=== PATIENT | male | born 1965 | race Caucasian/White ===

== ENCOUNTER → 2018-03-27 17:14 | Outpatient (CLI) | payer OTHER, SELFPAY ==
[2018-03-27 18:05] LABS: Add Manual Diff / Slide Review NO; Basophils Percent Auto 1.3 % (0-2); Eosinophils Percent Auto 2.3 % (2-4); Hematocrit 43.8 % (41-53); Lymphocytes Percent Auto 38.6 % (25-40); Mean Corpuscular HGB Conc 34.1 % (30-36); Mean Corpuscular Hemoglobin 29.3 PG (26-34); Mean Corpuscular Volume 85.8 fL (80-100); Monocytes Percent Auto 8.9 % (3-14); Neutrophils Absolute Auto 2900 /uL (3000-5900); Neutrophils Percent Auto 48.9 % (50-75); Platelet Count 204 X10^3/uL (150-400); Red Blood Cell Count 5.11 X10^6/uL (4.5-5.9); White Blood Cell Count 5.9 X10^3/uL (4.5-11.0)
[2018-03-27 18:27] LABS: BUN Creatinine Ratio 17.8 (6-22); Blood Urea Nitrogen 16 mg/dL (9-20); Calcium 9.8 mg/dL (8.4-10.2); Carbon Dioxide 27 mmol/L (22-32); Chloride 101 mmol/L (98-107); Estimated Glomerular Filt Rate > 60.0 mL/min (>60); Glucose 92 mg/dL (70-100); HEMOLYSIS < 15 (0-50); Potassium 4.8 mmol/L (3.4-5.1); Sodium 141 mmol/L (137-145)
== END ==
PROVIDERS: Visit Provider Orthopaedic Surgery
DX: Z01.812 Encounter for preprocedural laboratory examination (principal); D64.9 Anemia, unspecified; R73.9 Hyperglycemia, unspecified
CPT/HCPCS: 36415; 80048; 85025; 93005; 93010

== ENCOUNTER 2018-04-09 10:12 | Inpatient (IN) | payer OTHER, SELFPAY ==
[2018-03-26 07:32] VITALS: BMI 36.2
[2018-04-09] VITALS (14 sets, daily range): BP systolic 99–160; BP diastolic 63–96; PULSE 73–95; RESP 10–18; TEMP 36.3–37.6; O2SAT 91–98; BMI 57.7
--- NOTE | 2018-04-09 | DI.RAD.S_ITS ---
PROCEDURE: XR KNEE RT 1TO2V INDICATIONS: POST OPERATIVE RIGHT KNEE TECHNIQUE: 2 view(s) of the knee acquired. COMPARISON: None. FINDINGS: Bones: Patient is status post knee joint arthroplasty. Hardware components are in expected positions. Visualized bony structures are intact. Soft tissues: Overlying postoperative changes are noted. IMPRESSION: Post right total knee arthroplasty with anatomic alignment. Dictated by: Cristhian Kenny M.D. on 04/09/2018 at 15:39 Approved by: Cristhian Kenny M.D. on 04/09/2018 at 15:39
[2018-04-09] MEDS: VANCOMYCIN 1,000 MG/200 ML FROZ.PIGGY 200 MG IV (10:45)
[2018-04-09] MEDS: LACTATED RINGERS 1,000 ML 42 ML IV ×2 (10:45→13:08)
[2018-04-09] MEDS: ACETAMINOPHEN 325 MG TABLET 975 MG PO ×2 (10:47→22:05)
[2018-04-09] MEDS: CELECOXIB 200 MG CAPSULE PO (10:50)
[2018-04-09] MEDS: PREGABALIN 75 MG CAPSULE PO (10:50)
[2018-04-09] MEDS: fentaNYL 100 MCG/2 ML INJ IV (11:42)
--- NOTE | 2018-04-09 12:00 | PM.PREOP ---
Pre-operative Note Interval Note Pre-op Check: Yes History & Physical Reviewed by Physician and Yes Exam Performed Changes: No
--- NOTE | 2018-04-09 12:01 | SUR.PREOP ---
Block start time [1143] . Monitoring initiated and maintained throughout procedure. Oxygen and medications given per anesthesiologist instructions. Patient remained stable throughout procedure, no adverse reactions noted. Block end time 1155[].
[2018-04-09] MEDS: CEFAZOLIN 2 GM/100 ML FROZ.PIGGY IV ×2 (12:17→18:23)
--- NOTE | 2018-04-09 12:28 | PM.OP.1 ---
Operative Date/Time/Diagnoses Date of procedure: 04/09/18 Time of procedure: 12:28 Pre-op diagnosis: Right knee osteoarthritis Post-op diagnosis: same Procedure & Clinicians Procedure: right total knee arthroplasty Same procedure as scheduled: Yes Indications: The patient has had progressively worsening right knee pain with radiographic changes consistent with arthritis. Non-operative management has failed and the patient has requested total knee replacement. The risks, benefits and alternatives to surgery were discussed with the patient prior to proceeding. Risks discussed included, but were not limited to, failure to relieve pain, stiffness, infection, nerve damage, deep venous thrombosis, pulmonary embolism, stroke, coma, heart attack, permanent paralysis and , as well as the potential need for eventual revision of the prosthetic. Surgeon: Milly Estrella Technical Service Engineer: Antoine Carson Anesthesia Type: Spinal and Peripheral nerve block Operative Notes Findings: Severe right knee osteoarthritis Closure Type: primary Specimen(s): none sent Implants & Drains: Estrella and Nephew [facility]hew [facility] 8 femur, 6 tibia, 9 poly, 38 mm patella oval Applied: drain(s) Estimated Blood Loss (mL): 250 Blood products transfused: none Procedure in detail: The patient was seen in the pre-operative area, where the patient identified the right knee as the operative site and this was marked with my initials. The patient received pre-operative antibiotics, and was taken to the operating room and placed on the operative table in the supine position. After satisfactory anesthesia, a time cycle operator out was performed. The right leg was encircled with a tourniquet about the proximal thigh, and the leg was prepared from the toes to the tourniquet with ChloroPrep in the usual fashion and draped through sterile drapes. The leg was elevated and exsanguinated with Eschmark bandage and the tourniquet inflated to [250] mmHg pressure. The knee was approached through an approximately 18 cm incision centered over the patella and carried into the knee through a medial parapatellar arthrotomy. A portion of the medial and lateral meniscus was resected. Soft tissue was carefully mobilized around the patella the patella was measured with a caliper. Bone was resected from the patella and the patellar height was reconstituted with up an appropriate sized patellar component. For a cover was then placed on the patella. A small amount of additional medial and lateral meniscus was resected. The visionare guide fit well to the distal femur. It looked like an appropriate distal femoral cut and the cut was made without difficulty. The rotation was assessed and the appropriate size femoral guide was placed on the distal femur and finishing cuts were made. There is no evidence of notching. The anterior, posterior and chamfer cuts were then made. The posterior osteophytes and soft tissues were then removed. The posterior capsule was injected with part of a mixture of 60 ml 0.25% Marcaine mixed with 20 ml Exparel for post operative pain control. The remainder of this mixture was injected into the capsule and subcutaneous tissues during cement curing. The tibia was prepared and the visionaire guide fit well to the distal tibia. The rotation was assessed. The patient was placed in extension residual medial and lateral meniscus as well as any residual bone was carefully resected. [No] additional tibia was resected. Hemostasis was achieved especially posteriorly. Additional local was injected into the posterior capsule. The extension gap was assessed and additional releases for gap balancing were performed as necessary. It was checked with the gap form grader operator. The femoral component was trial was placed and the notch was finished. Trial tibial and femoral components were then placed and the knee placed through a range of motion. Range of motion was [0-130], with good stability throughout the range. The trials were then removed, and the tibia was finished. The bone was prepared with pulsatile lavage, and dried with a sponge. Cement was applied and the final prosthetics placed. Excess cement was removed during and after cement curing. A brief Betadine soak was performed. After confirming there was no extruded cement posteriorly, the final tibial insert was placed. The knee was copiously irrigated and the tourniquet deflated. Hemostasis was obtained with the [Aquamantys system]. A drain was placed and brought out superolaterally. The capsule was closed with interrupted # 1 black braided suture. The subcutaneous layer was closed with barbed sutures, and the skin with a running 3-0 V-Lock suture and Surgical glue. An Aquacel Ag dressing was applied and the patient was taken to recovery having tolerated the procedure well. Complications: none Condition: stable Disposition: Acute Care Plan for aftercare: The patient will be maintained on a standard total knee replacement protocol with weight bearing as tolerated. The patient will receive aspirin and sequential compression devices for DVT prophylaxis. The patient will be discharged home when safe for the home environment.
[2018-04-09] MEDS: FAMOTIDINE 20 MG/50 ML PIGGYBACK 200 MG IV (12:29)
--- NOTE | 2018-04-09 12:33 | P.OP_ITS ---
Operative Date/Time/Diagnoses Date of procedure: 04/09/18 Time of procedure: 12:28 Pre-op diagnosis: Right knee osteoarthritis Post-op diagnosis: same Procedure & Clinicians Procedure: right total knee arthroplasty Same procedure as scheduled: Yes Indications: The patient has had progressively worsening right knee pain with radiographic changes consistent with arthritis. Non-operative management has failed and the patient has requested total knee replacement. The risks, benefits and alternatives to surgery were discussed with the patient prior to proceeding. Risks discussed included, but were not limited to, failure to relieve pain, stiffness, infection, nerve damage, deep venous thrombosis, pulmonary embolism, stroke, coma, heart attack, permanent paralysis and , as well as the potential need for eventual revision of the prosthetic. Surgeon: Milly Estrella Functional Support Analyst: Antoine Carson Anesthesia Type: Spinal and Peripheral nerve block Operative Notes Findings: Severe right knee osteoarthritis Closure Type: primary Specimen(s): none sent Implants & Drains: [facility]rella [facility] 8 femur, 6 tibia, 9 poly , 38 mm patella oval Applied: drain(s) Estimated Blood Loss (mL): 250 Blood products transfused: none Procedure in detail: The patient was seen in the pre-operative area, where the patient identified the right knee as the operative site and this was marked with my initials. The patient received pre-operative antibiotics, and was taken to the operating room and placed on the operative table in the supine position. After satisfactory anesthesia, a full time babysitter out was performed. The right leg was encircled with a tourniquet about the proximal thigh, and the leg was prepared from the toes to the tourniquet with ChloroPrep in the usual fashion and draped through sterile drapes. The leg was elevated and exsanguinated with Eschmark bandage and the tourniquet inflated to [250] mmHg pressure. The knee was approached through an approximately 18 cm incision centered over the patella and carried into the knee through a medial parapatellar arthrotomy. A portion of the medial and lateral meniscus was resected. Soft tissue was carefully mobilized around the patella the patella was measured with a caliper. Bone was resected from the patella and the patellar height was reconstituted with up an appropriate sized patellar component. For a cover was then placed on the patella. A small amount of additional medial and lateral meniscus was resected. The visionare guide fit well to the distal femur. It looked like an appropriate distal femoral cut and the cut was made without difficulty. The rotation was assessed and the appropriate size femoral guide was placed on the distal femur and finishing cuts were made. There is no evidence of notching. The anterior, posterior and chamfer cuts were then made. The posterior osteophytes and soft tissues were then removed. The posterior capsule was injected with part of a mixture of 60 ml 0.25% Marcaine mixed with 20 ml Exparel for post operative pain control. The remainder of this mixture was injected into the capsule and subcutaneous tissues during cement curing. The tibia was prepared and the visionaire guide fit well to the distal tibia. The rotation was assessed. The patient was placed in extension residual medial and lateral meniscus as well as any residual bone was carefully resected. [No] additional tibia was resected. Hemostasis was achieved especially posteriorly. Additional local was injected into the posterior capsule. The extension gap was assessed and additional releases for gap balancing were performed as necessary. It was checked with the gap road mixer operator. The femoral component was trial was placed and the notch was finished. Trial tibial and femoral components were then placed and the knee placed through a range of motion. Range of motion was [ 0-130], with good stability throughout the range. The trials were then removed, and the tibia was finished. The bone was prepared with pulsatile lavage, and dried with a sponge. Cement was applied and the final prosthetics placed. Excess cement was removed during and after cement curing. A brief Betadine soak was performed. After confirming there was no extruded cement posteriorly, the final tibial insert was placed. The knee was copiously irrigated and the tourniquet deflated. Hemostasis was obtained with the [Aquamantys system]. A drain was placed and brought out superolaterally. The capsule was closed with interrupted # 1 black braided suture. The subcutaneous layer was closed with barbed sutures, and the skin with a running 3 -0 V-Lock suture and Surgical glue. An Aquacel Ag dressing was applied and the patient was taken to recovery having tolerated the procedure well. Complications: none Condition: stable Disposition: Acute Care Plan for aftercare: The patient will be maintained on a standard total knee replacement protocol with weight bearing as tolerated. The patient will receive aspirin and sequential compression devices for DVT prophylaxis. The patient will be discharged home when safe for the home environment.
[2018-04-09] MEDS: TRANEXAMIC ACID 1,000 MG VIAL 1000 MG IV ×2 (12:40→14:15)
[2018-04-09] MEDS: BUPIVACAINE 0.25% W/ EPI VIAL 50 ML INJ (13:01)
[2018-04-09] MEDS: BUPIVACAINE LIPOSOME 266 MG/20 ML VIAL INJ (13:01)
--- NOTE | 2018-04-09 13:11 | SUR.OPER ---
Supine on padded OR bed. Pillow under head, arms secured on padded armboards <90 degree abduction. Safety belt across torso. Non-operative leg secured with tape over blanket over lower leg. Operative leg secured in DeMayo/Papito positioner. Foam padded brace at thigh of operative leg.
[2018-04-09] MEDS: POVIDONE-IODINE 15 ML, SODIUM CHLORIDE 0.9% 250 ML TOP (13:51)
--- NOTE | 2018-04-09 15:13 | SUR.PHASEI ---
pt arrousable oral airway removed by Dr. Hernandez.
--- NOTE | 2018-04-09 15:33 | SUR.PHASEI ---
awake and alert oxygen discontinued at this time.
[2018-04-09] MEDS: LACTATED RINGERS 1,000 ML 125 ML IV (16:35)
[2018-04-09] MEDS: HYDROMORPHONE 2 MG TABLET 4 MG PO ×2 (16:37→22:06)
[2018-04-09] MEDS: ONDANSETRON 4 MG/2 ML INJ IV (17:06)
[2018-04-09] MEDS: PANTOPRAZOLE 40 MG TABLET PO (22:05)
[2018-04-09] MEDS: diphenhydrAMINE 25 MG TABLET 50 MG PO (22:06)
[2018-04-09] MEDS: ASPIRIN EC 81 MG TABLET PO (22:06)
[2018-04-09] MEDS: DOCUSATE 100 MG CAPSULE PO (22:06)
[2018-04-10] MEDS: HYDROMORPHONE 2 MG TABLET 4 MG PO ×4 (00:59→10:54)
[2018-04-10] MEDS: LACTATED RINGERS 1,000 ML 125 ML IV (01:00)
[2018-04-10] MEDS: CEFAZOLIN 2 GM/100 ML FROZ.PIGGY IV (01:50)
[2018-04-10 04:38] VITALS: BP 101/67; PULSE 74; RESP 18; TEMP 36.4; O2SAT 95
[2018-04-10 06:16] LABS: Hematocrit 38.1 % (41-53); Hemoglobin 12.8 g/dL (13.5-17.5)
[2018-04-10] MEDS: MELOXICAM 7.5 MG TABLET 15 MG PO (07:42)
[2018-04-10] MEDS: MULTIVITAMIN 1 TABLET 1 TAB PO (07:42)
[2018-04-10] MEDS: ASPIRIN EC 81 MG TABLET PO (07:42)
[2018-04-10] MEDS: PANTOPRAZOLE 40 MG TABLET PO (07:43)
[2018-04-10] MEDS: ACETAMINOPHEN 325 MG TABLET 975 MG PO (07:43)
[2018-04-10] MEDS: DOCUSATE 100 MG CAPSULE PO (07:43)
--- NOTE | 2018-04-10 08:26 | PM.DS.1 ---
History of Present Illness Date Patient Seen: 04/10/18 Time Patient Seen: 08:27 Chief complaint: [id number] Narrative: Patient is 52-year-old male with a history of right knee osteoarthritis he failed conservative measures and elected to proceed with a right total knee arthroplasty by Dr. Estrella at [facility]. The remainder details of his H&P can be found in the electronic chart. Discharge Providers Date of admission: 04/09/18 10:12 Consults: 04/09/18 16:04 Consult to Discharge Planning Routine Comment: Consult to Physical Therapy Evaluate & Treat Comment: oob today Physician Instructions: postop TKA protocol Consult to Respiratory Therapy Evaluate & Treat Comment: Physician Instructions: Evaluate and treat Discharge provider: Miri Cordoba PA-C Summary Discharge Diagnosis: Right knee osteoarthritis Hospital Course: Patient was admitted taken operating room had right total knee arthroplasty by Dr. Estrella. He recovered well as transfer for further care. Postop day 1 patient's pain was under control. Patient was ambulating well. Patient was eating and drinking well. The patient was able to urinate without difficulty. He is ready to be discharged home after cleared by physical therapy. patient will be discharged with prescriptions for Dilaudid 4 mg as needed for pain and Zofran 4 mg as needed for nausea. He has a follow-up appointment next week. Status at Discharge Cognitive/behavioral status at discharge: Patient alert and orient x3. Functional status at discharge: uses cane/walker Overall status at discharge: patient is progressing back to baseline Time Spent with Patient Less than 30 minutes Exam Vital Signs (past 8 hours): - 04/10/18 04:38 Temperature 97.6 F Pulse Rate 74 Respiratory Rate 18 Blood Pressure 101/67 Pulse Oximetry 95 Oxygen Delivery Method Room Air Oxygen Flow Rate 2 Narrative Exam Narrative: Patient is sitting in chair. Comfortable. Alert and orient x3. Right knee dressing clean dry intact with the Salvador bandage over wrap. Moderate swelling in the right knee. bilateral calves soft and nontender. 5/5 right ankle strength. Patient afebrile. Vital signs stable. Objective Labs Result Diagrams: 04/10/18 05:30 Labs: Laboratory Results - last 24 hr 04/10/18 05:30 Hgb 12.8 L Hct 38.1 L Discharge Plan Discharge Plan Patient Disposition: Home Discharge comment: Start physical therapy next week. Take aspirin 81 mg twice a day x6 weeks. Discharge Med Rec/Prescriptions Prescriptions: New acetaminophen 325 mg Tablet 975 mg PO TID Qty: 60 RF: 0 aspirin 81 mg Tablet,Delayed Release (Dr/Ec) 81 mg PO BID Qty: 60 RF: 0 docusate sodium 100 mg Capsule 100 mg PO BID Qty: 60 RF: 0 hydromorphone 2 mg Tablet 4 mg PO Q3-4H PRN (Reason: Pain, Severe (7-10)) Qty: 60 RF: 0 ondansetron 4 mg Tablet,Disintegrating 4 mg PO Q4HR PRN (Reason: Nausea) Qty: 30 RF: 0 Continue multivitamin Tablet 1 tab PO DAILY RF: 0 meloxicam 15 mg Tablet 15 mg PO DAILY RF: 0 omeprazole 40 mg Capsule,Delayed Release(Dr/Ec) 40 mg PO BID RF: 0 diphenhydramine HCl [Benadryl] 25 mg Capsule 50 mg PO BEDTIME RF: 0 rosuvastatin 40 mg Tablet 40 mg PO DAILY RF: 0 krill oil 500 mg Capsule 750 mg PO DAILY RF: 0 nitroglycerin 0.6 mg Tablet, Sublingual 0.6 mg SUBLINGUAL Q5-15M PRN (Reason: Chest Pain) RF: 0 Discontinued aspirin 81 mg Tablet,Delayed Release (Dr/Ec) 81 mg PO DAILY RF: 0 Follow up/Referrals: Milly Estrella MD [Physician] - ( follow-up next week as scheduled. contact office with any issues or concerns.) Provider Discharge Instructions Diet: Diet as Tolerated Activity: Ambulating with the assistance of a walker or cane Cold/Heat Therapy: apply ice to the extremity as needed for pain and inflammation Skin/Wound/Dressing Care Report to your healthcare provider any signs of infection, such as:: chills, fever, increased pain and unusual drainage Dressing: Leave dressing clean dry and intact. May shower. Visit Report/Discharge Packet Instructions: DI for Knee Replacement Discharge Data Attending Provider: Milly Estrella Admit Date/Time: 04/09/18 10:12 Quality VTE Deep Vein Thrombosis/Pulmonary Embolism Present on Admission: No
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
--- NOTE | 2018-04-11 09:01 | CM.IDA ---
DCP Assessment Note: Pt DC home w/ SO Friday, cleared by PT. 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 Mo barriers to safe DC home POD#1. CESAR Discharge Planning/Care Management CM Discharge Assessment Start: 04/10/18 08:33 Freq: Status: Discharge Protocol: Document 04/10/18 08:33 CESAR (Rec: 04/10/18 08:40 [facility] [id number]) Discharge Planning Assessment Assigned Grain Spouter CESAR DPOA/Assigned Designee Name Annemarie Casas, family Contact Information [phone] Advance Directives? No: Has info available History Provided By Patient Prior Living Arrangements House Household Members significant other Type of transporation used prior to Drives own vehicle admit Independent with ADL's No: Decrease in Indp d/t pain Is patient alert and oriented? Yes Barriers to Discharge No Discharge Plan Home Referrals Initiated None needed Whiteboard Updated in Patient Room with Yes name and ext. # of Grain Spouter Review Status In Process
== END 2018-04-10 11:00 | disposition home or self-care (01) | DRG 470 ==
PROVIDERS: Admitting Provider Orthopaedic Surgery; Visit Provider Orthopaedic Surgery
PROC: 0SRC0JZ Replacement of Right Knee Joint with Synthetic Substitute, Open Approach (ICD-10-PCS; CPT 27447; principal; 2018-04-09 12:00)
DX: M17.11 Unilateral primary osteoarthritis, right knee (principal); Z68.43 Body mass index [BMI] 50.0-59.9, adult; Z87.891 Personal history of nicotine dependence; F32.9 Major depressive disorder, single episode, unspecified; E66.9 Obesity, unspecified; E78.5 Hyperlipidemia, unspecified; I25.10 Atherosclerotic heart disease of native coronary artery without angina pectoris; F41.9 Anxiety disorder, unspecified
CPT/HCPCS: 36415; 64450; 73560; 85014; 85018; 97161; C1776; C9290; J0690; J1100; J2405; J2704; J3010; J3370

== ENCOUNTER → 2018-04-28 12:20 | Outpatient (CLI) | payer OTHER, SELFPAY ==
[2018-04-09 16:07] VITALS: BMI 57.7
[2018-04-28 14:03] LABS: Add Manual Diff / Slide Review NO; Basophils Percent Auto 0.4 % (0-2); Eosinophils Percent Auto 3.9 % (2-4); Hematocrit 38.7 % (41-53); Hemoglobin 13.2 g/dL (13.5-17.5); Lymphocytes Percent Auto 30.3 % (25-40); Mean Corpuscular HGB Conc 34.1 % (30-36); Mean Corpuscular Hemoglobin 28.9 PG (26-34); Mean Corpuscular Volume 84.8 fL (80-100); Monocytes Percent Auto 7.9 % (3-14); Neutrophils Absolute Auto 4100 /uL (3000-5900); Neutrophils Percent Auto 57.5 % (50-75); Platelet Count 345 X10^3/uL (150-400); Red Blood Cell Count 4.56 X10^6/uL (4.5-5.9); Red Cell Distribution Width 13.5 % (11.6-14.8); White Blood Cell Count 7.1 X10^3/uL (4.5-11.0)
[2018-04-28 14:04] LABS: Alanine Aminotransferase 29 IU/L (21-72); Albumin 4.2 g/dL (3.5-5.0); Albumin Globulin Ratio 1.2 (1.0-2.8); Alkaline Phosphatase 90 U/L (38-126); Aspartate Aminotransferase 21 IU/L (17-59); BUN Creatinine Ratio 15.6 (6-22); Bilirubin Total 0.8 mg/dL (0.2-1.3); Blood Urea Nitrogen 14 mg/dL (9-20); C-Reactive Protein Quant 2.5 mg/dL (<1.0); Calcium 9.4 mg/dL (8.4-10.2); Carbon Dioxide 27 mmol/L (22-32); Chloride 105 mmol/L (98-107); Estimated Glomerular Filt Rate > 60.0 mL/min (>60); Globulin 3.4 g/dL (1.7-4.1); Glucose 125 mg/dL (70-100); HEMOLYSIS < 15 (0-50); Potassium 4.3 mmol/L (3.4-5.1); Sodium 143 mmol/L (137-145); Total Protein 7.6 g/dL (6.3-8.2)
[2018-04-28 14:43] LABS: Erythrocyte Sedimentation Rate 45 MM/HR (0-15)
== END ==
PROVIDERS: Visit Provider Orthopaedic Surgery
DX: M17.0 Bilateral primary osteoarthritis of knee (principal)
CPT/HCPCS: 36415; 80053; 85025; 85651; 86140